=== PATIENT | female | born 1995 | race American Indian/Alaskan Native ===

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

== ENCOUNTER 2017-10-01 01:30 | Emergency (ER) | payer MEDICAID ==
[2017-10-01 01:18] VITALS: BP 134/61
[~2017-10-01 01:30] MED LIST: Sodium Chloride 0.9% 1,000 ML IV ONE
--- NOTE | 2017-10-01 01:32 | EDM.PDOC ---
ED HPI GENERAL MEDICAL PROBLEM - General Chief Complaint: Fever Stated Complaint: IN BY AMBULANCE Time Seen by Provider: 10/01/17 01:20 Source of Information: Reports: Patient History Limitations: Reports: No Limitations - History of Present Illness INITIAL COMMENTS - FREE TEXT/NARRATIVE: This 21 yo female patient was brought to the ED by [facility] due to an elevated temp , generalized body aches, nausea and loose stools. The patient reports her symptoms started 3 days ago. The patient reports she has been taking ibuprofen and Tylenol for temporary symptom relief. The patient reports she took Motrin about 30 minutes prior to coming to the ED and Tylenol 5 hours prior to coming to the ED. The patient does not know if she got the flu shot this year. The patient reports she was forced to play a basketball game yesterday despite her current symptoms. 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 Generalized Pain Score (Numeric/FACES): 5 - Related Data Allergies Allergy/AdvReac Type Severity Reaction Status Date / Time No Known Allergies Allergy Verified 10/01/17 01:18 Home Meds: Home Meds Acetaminophen [Tylenol] 325 mg PO ASDIRECTED PRN 02/19/16 [History] Ibuprofen 600 mg PO ASDIRECTED PRN 02/19/16 [History] Ferrous Sulfate [Iron] 325 mg PO DAILY 11/30/16 [History] Pnv No.122/Iron/Folic Acid [ Multi Tablet] 1 tab PO DAILY 11/30/16 [ History] Past Medical History - Past Health History Medical/Surgical History: Denies Medical/Surgical History HEENT History: Reports: None Cardiovascular History: Reports: None Respiratory History: Reports: None Gastrointestinal History: Reports: None Genitourinary History: 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: 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 History: Reports: None Neurological History: Reports: None Psychiatric History: Reports: None Endocrine/Metabolic History: Reports: None Hematologic History: Reports: None Immunologic History: Reports: None Oncologic (Cancer) History: Reports: None Dermatologic History: Reports: None - Infectious Disease History Infectious Disease History: Reports: None - Past Surgical History Head Surgeries/Procedures: Reports: None Social & Family History - Family History Family Medical History: Noncontributory - Tobacco Use Smoking Status *Q: Never Smoker Second Hand Smoke Exposure: No - Caffeine Use Caffeine Use: Reports: None - Alcohol Use Days Per Week of Alcohol Use: 0 - Recreational Drug Use Recreational Drug Use: No ED ROS GENERAL - Review of Systems Review Of Systems: ROS reveals no pertinent complaints other than HPI. ED EXAM, GENERAL - Physical Exam Exam: See Below Exam Limited By: No Limitations General Appearance: Alert, WD/WN, Moderate Distress Eye Exam: Bilateral Eye: EOMI, Normal Inspection, PERRL Ears: Normal External Exam, Normal Canal, Hearing Grossly Normal, Normal TMs Nose: Normal Inspection, Normal Mucosa, No Blood Throat/Mouth: Normal Inspection, Normal Lips, Normal Teeth, Normal Gums, Normal Oropharynx, Normal Voice, No Airway Compromise Head: Atraumatic, Normocephalic Neck: Normal Inspection, Supple, Non-Tender, Full Range of Motion Respiratory/Chest: No Respiratory Distress, Lungs Clear, Normal Breath Sounds, No Accessory Muscle Use, Chest Non-Tender Cardiovascular: Normal Peripheral Pulses, Regular Rate, Rhythm, No Edema, No Gallop, No JVD, No Murmur, No Rub GI/Abdominal: Normal Bowel Sounds, Soft, Non-Tender, No Organomegaly, No Distention, No Abnormal Bruit, No Mass (Female) Exam: Deferred Rectal (Female) Exam: Deferred Back Exam: Normal Inspection, Full Range of Motion, NT Extremities: Normal Inspection, Normal Range of Motion, Non-Tender, Normal Capillary Refill, No Pedal Edema Neurological: Alert, Oriented, CN II-XII Intact, Normal Cognition, Normal Gait, Normal Reflexes, No Motor/Sensory Deficits Psychiatric: Normal Affect, Normal Mood Skin Exam: Diaphoretic, Increased Warmth Lymphatic: No Adenopathy Course - Vital Signs Last Recorded V/S: Last Vital Signs Temp 39.1 C H 10/01/17 01:06 Pulse 123 H 10/01/17 01:06 Resp 21 H 10/01/17 01:06 BP 134/61 10/01/17 01:06 Pulse Ox 99 10/01/17 01:06 - Orders/Labs/Meds Orders: Active Orders 24 hr Category Date Time Status CULTURE BLOOD [BC] Stat Lab 10/01/17 01:37 Ordered CULTURE BLOOD [BC] Stat Lab 10/01/17 01:37 Ordered Sodium Chloride 0.9% [Normal Saline] 1,000 ml Med 10/01/17 01:25 Active IV .BOLUS Blood Culture x2 Reflex Set [OM.PC] Stat Oth 10/01/17 01:37 Ordered Medication Orders Sodium Chloride (Normal Saline) 1,000 mls @ 999 mls/hr IV .BOLUS ONE Stop: 10/01/17 02:25 Last Admin: 10/01/17 01:34 Dose: 999 mls/hr Labs: Laboratory Tests 10/01/17 10/01/17 10/01/17 Range/Units 01:02 01:02 01:02 WBC (5.0-10.0) 10^3/uL RBC (4.2-5.4) 10^6/uL Hgb (12.0-16.0) g/dL Hct (37.0-47.0) % MCV (80-100) fL MCH (27.0-34.0) pg MCHC (33.0-35.0) g/dL Plt Count (150-450) 10^3/uL Neut % (Auto) (42.2-75.2) % Lymph % (Auto) (20.5-50.1) % [place] % (Auto) (2-8) % Eos % (Auto) (1.0-3.0) % Baso % (Auto) (0.0-1.0) % Add Manual Diff Neutrophils % (Manual) (42-75) % Lymphocytes % (Manual) (20-50) % Monocytes % (Manual) (2-8) % Sodium (135-145) mmol/L Potassium (3.6-5.0) mmol/L Chloride (101-111) mmol/L Carbon Dioxide (21.0-31.0) mmol/L Anion Gap BUN (7-18) mg/dL Creatinine (0.6-1.3) mg/dL Est Cr Clr Drug Dosing mL/min Estimated GFR (MDRD) BUN/Creatinine Ratio Glucose (74-105) mg/dL Lactic Acid (0.5-2.2) mmol/L Calcium (8.4-10.2) mg/dl Magnesium (1.8-2.5) mg/dL Total Bilirubin (0.2-1.0) mg/dL AST (10-42) IU/L ALT (10-60) IU/L Alkaline Phosphatase (42-121) IU/L Total Protein (6.7-8.2) g/dl Albumin (3.2-5.5) g/dl Globulin Albumin/Globulin Ratio Urine Color Yellow (YELLOW) Urine Appearance Cloudy (CLEAR) Urine pH 6.0 (5.0-9.0) Ur Specific [place] 1.020 (1.005-1.030) Urine Protein >=300 H (NEGATIVE) Urine Glucose (UA) Negative (NEGATIVE) Urine Ketones >=160 H (NEGATIVE) Urine Occult Blood Large H (NEGATIVE) Urine Nitrite Negative (NEGATIVE) Urine Bilirubin Small H (NEGATIVE) Urine Urobilinogen 1.0 (0.2-1.0) mg/dL Ur Leukocyte Esterase Small H (NEGATIVE) Urine RBC 5-10 H /HPF Urine WBC >100 H (0-5/HPF) /HPF Ur Epithelial Cells Many H /HPF Urine Bacteria Many H (0-FEW/HPF) /HPF Urinalysis Comment Urine HCG, Qual Negative Salicylates Urine Opiates Screen Negative (NEGATIVE) Ur Oxycodone Screen Negative (NEGATIVE) Urine Methadone Screen Negative (NEGATIVE) Acetaminophen Ur Barbiturates Screen Negative (NEGATIVE) U Tricyclic Antidepress Negative (NEGATIVE) Ur Phencyclidine Scrn Negative (NEGATIVE) Ur Amphetamine Screen Negative (NEGATIVE) U Methamphetamines Scrn Negative (NEGATIVE) Urine MDMA Screen Negative (NEGATIVE) U Benzodiazepines Scrn Negative (NEGATIVE) Urine Cocaine Screen Negative (NEGATIVE) U Marijuana (THC) Screen Positive H (NEGATIVE) Ethyl Alcohol mg/dL 10/01/17 10/01/17 10/01/17 Range/Units 01:10 01:10 01:10 WBC 23.4 H (5.0-10.0) 10^3/uL RBC 4.54 (4.2-5.4) 10^6/uL Hgb 11.1 L D (12.0-16.0) g/dL Hct 33.9 L (37.0-47.0) % MCV 74.7 L (80-100) fL MCH 24.4 L (27.0-34.0) pg MCHC 32.7 L (33.0-35.0) g/dL Plt Count 241 D (150-450) 10^3/uL Neut % (Auto) 84.9 H (42.2-75.2) % Lymph % (Auto) 5.1 L (20.5-50.1) % [place] % (Auto) 9.9 H (2-8) % Eos % (Auto) 0.0 L (1.0-3.0) % Baso % (Auto) 0.1 (0.0-1.0) % Add Manual Diff Yes Neutrophils % (Manual) 85 H (42-75) % Lymphocytes % (Manual) 9 L (20-50) % Monocytes % (Manual) 6 (2-8) % Sodium 133 L (135-145) mmol/L Potassium 3.6 (3.6-5.0) mmol/L Chloride 101 (101-111) mmol/L Carbon Dioxide 22.0 (21.0-31.0) mmol/L Anion Gap 13.6 BUN 10 (7-18) mg/dL Creatinine 0.9 (0.6-1.3) mg/dL Est Cr Clr Drug Dosing 75.87 mL/min Estimated GFR (MDRD) > 60 BUN/Creatinine Ratio 11.11 Glucose 115 H (74-105) mg/dL Lactic Acid (0.5-2.2) mmol/L Calcium 8.3 L (8.4-10.2) mg/dl Magnesium 1.7 L (1.8-2.5) mg/dL Total Bilirubin 0.8 (0.2-1.0) mg/dL AST 21 (10-42) IU/L ALT 36 (10-60) IU/L Alkaline Phosphatase 94 (42-121) IU/L Total Protein 7.8 (6.7-8.2) g/dl Albumin 3.7 (3.2-5.5) g/dl Globulin 4.1 Albumin/Globulin Ratio 0.90 Urine Color (YELLOW) Urine Appearance (CLEAR) Urine pH (5.0-9.0) Ur Specific [place] (1.005-1.030) Urine Protein (NEGATIVE) Urine Glucose (UA) (NEGATIVE) Urine Ketones (NEGATIVE) Urine Occult Blood (NEGATIVE) Urine Nitrite (NEGATIVE) Urine Bilirubin (NEGATIVE) Urine Urobilinogen (0.2-1.0) mg/dL Ur Leukocyte Esterase (NEGATIVE) Urine RBC /HPF Urine WBC (0-5/HPF) /HPF Ur Epithelial Cells /HPF Urine Bacteria (0-FEW/HPF) /HPF Urinalysis Comment Urine HCG, Qual Salicylates < 4.0 Urine Opiates Screen (NEGATIVE) Ur Oxycodone Screen (NEGATIVE) Urine Methadone Screen (NEGATIVE) Acetaminophen < 10.0 Ur Barbiturates Screen (NEGATIVE) U Tricyclic Antidepress (NEGATIVE) Ur Phencyclidine Scrn (NEGATIVE) Ur Amphetamine Screen (NEGATIVE) U Methamphetamines Scrn (NEGATIVE) Urine MDMA Screen (NEGATIVE) U Benzodiazepines Scrn (NEGATIVE) Urine Cocaine Screen (NEGATIVE) U Marijuana (THC) Screen (NEGATIVE) Ethyl Alcohol < 5 mg/dL 10/01/17 Range/Units 01:50 WBC (5.0-10.0) 10^3/uL RBC (4.2-5.4) 10^6/uL Hgb (12.0-16.0) g/dL Hct (37.0-47.0) % MCV (80-100) fL MCH (27.0-34.0) pg MCHC (33.0-35.0) g/dL Plt Count (150-450) 10^3/uL Neut % (Auto) (42.2-75.2) % Lymph % (Auto) (20.5-50.1) % [place] % (Auto) (2-8) % Eos % (Auto) (1.0-3.0) % Baso % (Auto) (0.0-1.0) % Add Manual Diff Neutrophils % (Manual) (42-75) % Lymphocytes % (Manual) (20-50) % Monocytes % (Manual) (2-8) % Sodium (135-145) mmol/L Potassium (3.6-5.0) mmol/L Chloride (101-111) mmol/L Carbon Dioxide (21.0-31.0) mmol/L Anion Gap BUN (7-18) mg/dL Creatinine (0.6-1.3) mg/dL Est Cr Clr Drug Dosing mL/min Estimated GFR (MDRD) BUN/Creatinine Ratio Glucose (74-105) mg/dL Lactic Acid 0.8 (0.5-2.2) mmol/L Calcium (8.4-10.2) mg/dl Magnesium (1.8-2.5) mg/dL Total Bilirubin (0.2-1.0) mg/dL AST (10-42) IU/L ALT (10-60) IU/L Alkaline Phosphatase (42-121) IU/L Total Protein (6.7-8.2) g/dl Albumin (3.2-5.5) g/dl Globulin Albumin/Globulin Ratio Urine Color (YELLOW) Urine Appearance (CLEAR) Urine pH (5.0-9.0) Ur Specific [place] (1.005-1.030) Urine Protein (NEGATIVE) Urine Glucose (UA) (NEGATIVE) Urine Ketones (NEGATIVE) Urine Occult Blood (NEGATIVE) Urine Nitrite (NEGATIVE) Urine Bilirubin (NEGATIVE) Urine Urobilinogen (0.2-1.0) mg/dL Ur Leukocyte Esterase (NEGATIVE) Urine RBC /HPF Urine WBC (0-5/HPF) /HPF Ur Epithelial Cells /HPF Urine Bacteria (0-FEW/HPF) /HPF Urinalysis Comment Urine HCG, Qual Salicylates Urine Opiates Screen (NEGATIVE) Ur Oxycodone Screen (NEGATIVE) Urine Methadone Screen (NEGATIVE) Acetaminophen Ur Barbiturates Screen (NEGATIVE) U Tricyclic Antidepress (NEGATIVE) Ur Phencyclidine Scrn (NEGATIVE) Ur Amphetamine Screen (NEGATIVE) U Methamphetamines Scrn (NEGATIVE) Urine MDMA Screen (NEGATIVE) U Benzodiazepines Scrn (NEGATIVE) Urine Cocaine Screen (NEGATIVE) U Marijuana (THC) Screen (NEGATIVE) Ethyl Alcohol mg/dL Meds: Medications Generic Name Dose Route Start Last Admin Trade Name Freq PRN Reason Stop Dose Admin Sodium Chloride 1,000 mls @ 999 mls/hr 10/01/17 01:25 10/01/17 01:34 Normal Saline IV 10/01/17 02:25 999 mls/hr .BOLUS ONE Administration Discontinued Medications Generic Name Dose Route Start Last Admin Trade Name Freq PRN Reason Stop Dose Admin Acetaminophen 650 mg 10/01/17 01:51 10/01/17 01:58 Tylenol PO 10/01/17 01:52 650 mg NOW ONE Administration Metronidazole 500 mg 10/01/17 02:18 Metronidazole PO 10/01/17 02:19 ONETIME ONE Penicillin G Procaine/Benzathine 1.2 millunits 10/01/17 02:18 Bicillin C-R 600/600 IM 10/01/17 02:19 ONETIME ONE Departure - Departure Time of Disposition: 02:30 Disposition: Home, Self-Care 01 Condition: Fair Clinical Impression: Bacterial vaginitis, Strep throat - Discharge Information Instructions: Bacterial Vaginosis, [id number], Strep Throat, [id number] Forms: ED Department Discharge Care Plan Goals: The patient was advised of the examination and lab results during the visit. The patient was given an injection of Penicillin and an oral dose of Metronidazole while in the ED. The patient was discharged with a script for Metronidazole (500 mg) #14 to take 1 by mouth 2 times per day for 7 days and Azithromycin (250 mg) #6 to take 2 by mouth on day 1 and 1 by mouth on days 2- 5. The patient may continue to take Tylenol and ibuprofen as directed for temporary symptom relief. If the patient has any additional symptoms or concerns , the patient should follow-up with her primary care facility or return to the emergency department. - My Orders Last 24 Hours: My Active Orders 10/01/17 01:25 Sodium Chloride 0.9% [Normal Saline] 1,000 ml IV .BOLUS 10/01/17 01:37 CULTURE BLOOD [BC] Stat CULTURE BLOOD [BC] Stat Blood Culture x2 Reflex Set [OM.PC] Stat - Assessment/Plan Last 24 Hours: My Active Orders 10/01/17 01:25 Sodium Chloride 0.9% [Normal Saline] 1,000 ml IV .BOLUS 10/01/17 01:37 CULTURE BLOOD [BC] Stat CULTURE BLOOD [BC] Stat Blood Culture x2 Reflex Set [OM.PC] Stat
[2017-10-01 01:35] LABS: CHLORIDE,CL 101 mmol/L (101-111); SODIUM,NA 133 mmol/L (135-145)
[2017-10-01 01:37] LABS: ACETAMINOPHEN < 10.0
[2017-10-01] MEDS ORDERED: Acetaminophen 325 MG Tab PO ONE (01:51)
[2017-10-01] MEDS ORDERED: metroNIDAZOLE 250 MG Tab PO ONE (02:18)
[2017-10-01] MEDS ORDERED: Penicillin G Benzathine/Procaine 600-600 1.2 Millunits/2 ML Syringe IM ONE (02:18)
== END 2017-10-01 02:42 | disposition home or self-care (01) ==
LOC: DL.ED 01:30
DX: N76.0 Acute vaginitis (principal); J02.0 Streptococcal pharyngitis
CPT/HCPCS: 36415; 80053; 80305; 81001; 81025; 83605; 83735; 85025; 87040; 87430; 87804; 96360; 96372; 99284; A9270; G0480; J0558; J7030

== ENCOUNTER 2018-08-20 18:26 | Emergency (ER) | payer MEDICAID ==
[2018-08-20] MEDS ORDERED: Ondansetron 4 MG/2 ML SDV IV ONE (19:03)
[2018-08-20] MEDS ORDERED: Lactated Ringers 1,000 ML IV ONE (19:03)
--- NOTE | 2018-08-20 19:06 | EDM.PDOC ---
ED HPI GENERAL MEDICAL PROBLEM - General Chief Complaint: Gastrointestinal Problem Stated Complaint: STOMACH PAIN/THROWING UP [id number] Time Seen by Provider: 08/20/18 19:04 Source of Information: Reports: Patient History Limitations: Reports: No Limitations - History of Present Illness INITIAL COMMENTS - FREE TEXT/NARRATIVE: recurrent abd pain with N/V since this am. been Dx with GB stones had appt but missed it. 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: Reports: None Neurological History: Reports: None Psychiatric History: Reports: None Endocrine/Metabolic History: Reports: None Hematologic History: Reports: None Immunologic History: Reports: None Oncologic (Cancer) History: Reports: None Dermatologic History: Reports: None - Infectious Disease History Infectious Disease History: Reports: None - Past Surgical History Head Surgeries/Procedures: Reports: None Social & Family History - Family History Family Medical History: Noncontributory - Tobacco Use Smoking Status *Q: Never Smoker - Caffeine Use Caffeine Use: Reports: Soda - Recreational Drug Use Recreational Drug Use: No ED ROS GENERAL - Review of Systems Review Of Systems: ROS reveals no pertinent complaints other than HPI. ED EXAM, GI/ABD - Physical Exam Exam: See Below Exam Limited By: No Limitations General Appearance: Alert, WD/WN, Mild Distress, Other (discomfort) Throat/Mouth: Normal Voice, No Airway Compromise Head: Atraumatic Neck: Non-Tender, Full Range of Motion Respiratory/Chest: No Respiratory Distress Cardiovascular: Regular Rate, Rhythm GI/Abdominal Exam: Soft, Tender, Other (epiG, BS hyper). No: Distended, Guarding, Rigid, Rebound Neurological: Alert, Oriented, Normal Cognition, Normal Gait, No Motor/Sensory Deficits Psychiatric: Tearful Skin Exam: Warm, Dry, Normal Color Lymphatic: No Adenopathy Course - Vital Signs Last Recorded V/S: Last Vital Signs Temp 36.6 C 08/20/18 21:11 Pulse 95 08/20/18 21:11 Resp 16 08/20/18 21:11 BP 123/66 08/20/18 21:11 Pulse Ox 98 08/20/18 21:11 - Orders/Labs/Meds Labs: Laboratory Tests 08/20/18 08/20/18 Range/Units 19:10 19:10 WBC 15.9 H (5.0-10.0) 10^3/uL RBC 5.05 (4.2-5.4) 10^6/uL Hgb 13.4 (12.0-16.0) g/dL Hct 40.2 (37.0-47.0) % MCV 79.6 L (80-100) fL MCH 26.5 L (27.0-34.0) pg MCHC 33.3 (33.0-35.0) g/dL Plt Count 250 (150-450) 10^3/uL Neut % (Auto) 83.4 H (42.2-75.2) % Lymph % (Auto) 9.6 L (20.5-50.1) % [place] % (Auto) 6.6 (2-8) % Eos % (Auto) 0.2 L (1.0-3.0) % Baso % (Auto) 0.2 (0.0-1.0) % Sodium 137 (135-145) mmol/L Potassium 3.5 L (3.6-5.0) mmol/L Chloride 104 (101-111) mmol/L Carbon Dioxide 22.0 (21.0-31.0) mmol/L Anion Gap 14.5 BUN 11 (7-18) mg/dL Creatinine 0.7 (0.6-1.3) mg/dL Est Cr Clr Drug Dosing 101.39 mL/min Estimated GFR (MDRD) > 60 BUN/Creatinine Ratio 15.71 Glucose 135 H (74-105) mg/dL Calcium 8.9 (8.4-10.2) mg/dl Total Bilirubin 1.6 H (0.2-1.0) mg/dL AST 212 H (10-42) IU/L ALT 175 H (10-60) IU/L Alkaline Phosphatase 132 H (42-121) IU/L Total Protein 8.3 H (6.7-8.2) g/dl Albumin 4.6 (3.2-5.5) g/dl Globulin 3.7 Albumin/Globulin Ratio 1.24 Amylase > 2000 H (28-100) U/L Lipase > 400 H (22-51) U/L HCG, Qual Negative Meds: Medications Discontinued Medications Generic Name Dose Route Start Last Admin Trade Name Freq PRN Reason Stop Dose Admin Lactated Ringer's 1,000 mls @ 999 mls/hr 08/20/18 19:03 08/20/18 19:15 Ringers, Lactated IV 08/20/18 20:03 999 mls/hr .BOLUS ONE Administration Iopamidol 100 ml 08/20/18 19:57 08/20/18 20:21 Isovue-300 (61%) IVPUSH 08/20/18 19:58 100 ml ONETIME ONE Administration Morphine Sulfate 2 mg 08/20/18 21:10 08/20/18 21:16 Morphine IVPUSH 08/20/18 21:11 2 mg ONETIME ONE Administration Ondansetron HCl 4 mg 08/20/18 19:03 08/20/18 19:15 Zofran IV 08/20/18 19:04 4 mg ONETIME ONE Administration - Re-Assessments/Exams Free Text/Narrative Re-Assessment/Exam: 08/20/18 21:[address] Moody who kindly accepted pt. Departure - Departure Time of Disposition: 21:35 Disposition: DC/Tfer to Acute Hospital 02 Condition: Fair Clinical Impression: Cholecystitis Pancreatitis Qualifiers: Chronicity: acute Pancreatitis type: unspecified pancreatitis type Acute pancreatitis complication: no infection or necrosis Qualified Code(s): K85.90 - Acute pancreatitis without necrosis or infection, unspecified Cholelithiases Qualifiers: Cholelithiasis location: gallbladder Cholecystitis presence: without cholecystitis Biliary obstruction: without biliary obstruction Qualified Code(s) : K80.20 - Calculus of gallbladder without cholecystitis without obstruction - Discharge Information Forms: Interfacility Transfer EMTALA
[2018-08-20 19:45] LABS: ANION GAP 14.5; CHLORIDE,CL 104 mmol/L (101-111); SODIUM,NA 137 mmol/L (135-145)
[2018-08-20] MEDS ORDERED: Iopamidol 612 MG/ML 100 ML Bottle IVPUSH ONE (19:57)
[2018-08-20] MEDS ORDERED: Morphine 2 MG/ML Syringe IVPUSH ONE (21:10)
[2018-08-20 21:12] VITALS: BP 123/66
== END 2018-08-20 22:16 ==
LOC: DL.ED 18:26
DX: K80.10 Calculus of gallbladder with chronic cholecystitis without obstruction (principal); K85.90 Acute pancreatitis without necrosis or infection, unspecified
CPT/HCPCS: 36415; 74177; 80053; 82150; 83690; 84703; 85025; 96361; 96374; 96375; 99285; J2270; J2405; J7120; Q9967

== ENCOUNTER 2018-11-24 20:31 | Emergency (ER) | payer MEDICAID ==
[2018-11-24] MEDS ORDERED: Clindamycin Phosphate 900 MG in Sodium Chloride 0.9% 100 ML IV ONE (21:35)
[2018-11-24] MEDS ORDERED: Sodium Chloride 0.9% 1,000 ML IV ONE (21:35)
[2018-11-24 21:37] VITALS: BP 151/71; PULSE 92
--- NOTE | 2018-11-24 21:38 | EDM.PDOC ---
ED HPI GENERAL MEDICAL PROBLEM - General Chief Complaint: Laceration Stated Complaint: CUT RT FOOT [id number] Time Seen by Provider: 11/24/18 21:35 Source of Information: Reports: Patient History Limitations: Reports: No Limitations - History of Present Illness INITIAL COMMENTS - FREE TEXT/NARRATIVE: dropped glass onto right foot 3 days ago, now swollen red infected painful, looks worse Right Feet Pain Score (Numeric/FACES): 8 - Related Data Allergies Allergy/AdvReac Type Severity Reaction Status Date / Time No Known Allergies Allergy Verified 11/24/18 21:37 Home Meds: Home Meds . 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 Neurological History: Reports: None Psychiatric History: Reports: None Endocrine/Metabolic History: Reports: None Hematologic History: Reports: None Immunologic History: Reports: None Oncologic (Cancer) History: Reports: None Dermatologic History: Reports: None - Infectious Disease History Infectious Disease History: Reports: None - Past Surgical History Head Surgeries/Procedures: Reports: None Social & Family History - Family History Family Medical History: Noncontributory - Caffeine Use Caffeine Use: Reports: Soda ED ROS GENERAL - Review of Systems Review Of Systems: ROS reveals no pertinent complaints other than HPI. ED EXAM, SKIN/RASH Exam: See Below Exam Limited By: No Limitations General Appearance: Alert, WD/WN, Mild Distress, Other (discomfort) Ears: Hearing Grossly Normal Throat/Mouth: Normal Voice, No Airway Compromise Head: Atraumatic Neck: Non-Tender, Full Range of Motion Respiratory/Chest: No Respiratory Distress Cardiovascular: Regular Rate, Rhythm GI/Abdominal: Soft, Non-Tender Extremities: Redness, Other (right foot infected wound, red swollen, no lymphangitis, NV wnl, gait limited to pain) Neurological: Alert, Oriented, Normal Cognition, No Motor/Sensory Deficits Psychiatric: Tearful Skin: Warm, Dry, Normal Color Location, Skin: Lower Extremity, Right Associated features: Warmth, Tenderness, Swelling, Inflammation, Weeping. No: Lymphangitis Lymphatic: No Adenopathy Course - Vital Signs Last Recorded V/S: Last Vital Signs Temp 36.6 C 11/24/18 21:29 Pulse 92 11/24/18 21:29 Resp 16 11/24/18 21:29 BP 151/71 H 11/24/18 21:29 Pulse Ox 99 11/24/18 21:29 - Orders/Labs/Meds Orders: Active Orders 24 hr Category Date Time Status CULTURE BLOOD [BC] Stat Lab 11/24/18 21:44 Received CULTURE WOUND [RM] Stat Lab 11/24/18 21:33 Ordered Sodium Chloride 0.9% [Normal Saline] 1,000 ml Med 11/24/18 21:35 Active IV .BOLUS Medication Orders Sodium Chloride (Normal Saline) 1,000 mls @ 999 mls/hr IV .BOLUS ONE Stop: 11/24/18 22:35 Last Admin: 11/24/18 21:54 Dose: 999 mls/hr Labs: Laboratory Tests 11/24/18 11/24/18 11/24/18 Range/Units 21:44 21:44 21:44 WBC 11.2 H (5.0-10.0) 10^3/uL RBC 4.96 (4.2-5.4) 10^6/uL Hgb 13.1 (12.0-16.0) g/dL Hct 39.7 (37.0-47.0) % MCV 80.0 (80-100) fL MCH 26.4 L (27.0-34.0) pg MCHC 33.0 (33.0-35.0) g/dL Plt Count 269 (150-450) 10^3/uL Neut % (Auto) 61.3 (42.2-75.2) % Lymph % (Auto) 28.2 (20.5-50.1) % [place] % (Auto) 9.3 H (2-8) % Eos % (Auto) 1.0 (1.0-3.0) % Baso % (Auto) 0.2 (0.0-1.0) % Sodium 136 (135-145) mmol/L Potassium 3.3 L (3.6-5.0) mmol/L Chloride 102 (101-111) mmol/L Carbon Dioxide 22.0 (21.0-31.0) mmol/L Anion Gap 15.3 BUN 8 (7-18) mg/dL Creatinine 0.7 (0.6-1.3) mg/dL Est Cr Clr Drug Dosing 101.39 mL/min Estimated GFR (MDRD) > 60 BUN/Creatinine Ratio 11.42 Glucose 82 (74-105) mg/dL Lactic Acid 0.7 (0.5-2.2) mmol/L Calcium 8.8 (8.4-10.2) mg/dl Total Bilirubin 0.6 (0.2-1.0) mg/dL AST 15 (10-42) IU/L ALT 18 (10-60) IU/L Alkaline Phosphatase 76 (42-121) IU/L Total Protein 8.2 (6.7-8.2) g/dl Albumin 4.3 (3.2-5.5) g/dl Globulin 3.9 Albumin/Globulin Ratio 1.10 Meds: Medications Generic Name Dose Route Start Last Admin Trade Name Freq PRN Reason Stop Dose Admin Sodium Chloride 1,000 mls @ 999 mls/hr 11/24/18 21:35 11/24/18 21:54 Normal Saline IV 11/24/18 22:35 999 mls/hr .BOLUS ONE Administration Discontinued Medications Generic Name Dose Route Start Last Admin Trade Name Freq PRN Reason Stop Dose Admin Hydrocodone Bitart/Acetaminophen 1 tab 11/24/18 22:18 [place] 325-10 Mg PO 11/24/18 22:19 ONETIME ONE Clindamycin Phosphate 900 mg/ 106 mls @ 200 mls/hr 11/24/18 21:35 11/24/18 21 :55 Sodium Chloride IV 11/24/18 22:06 200 mls/hr ONETIME ONE Administration - Re-Assessments/Exams Free Text/Narrative Re-Assessment/Exam: 11/24/18 22:19 results discussed with pt who prefers home with PO Rx. Departure - Departure Time of Disposition: 22:19 Disposition: Home, Self-Care 01 Condition: Good Clinical Impression: Cellulitis of foot without toes, right - Discharge Information Instructions: Cellulitis, Adult, Ovks-[id number]-Guns Forms: ED Department Discharge Additional Instructions: 1) elevate leg as much as possible next 48 hours 2) keep wound clean dry covered 3) follow up at clinic 4) recheck if looks worse rx given; clindamycin 300mg qid x 40 vicodin 5/325mg bid prn x 6 - My Orders Last 24 Hours: My Active Orders 11/24/18 21:33 CULTURE WOUND [RM] Stat 11/24/18 21:35 Sodium Chloride 0.9% [Normal Saline] 1,000 ml IV .BOLUS 11/24/18 21:44 CULTURE BLOOD [BC] Stat - Assessment/Plan Last 24 Hours: My Active Orders 11/24/18 21:33 CULTURE WOUND [RM] Stat 11/24/18 21:35 Sodium Chloride 0.9% [Normal Saline] 1,000 ml IV .BOLUS 11/24/18 21:44 CULTURE BLOOD [BC] Stat
[2018-11-24 22:11] LABS: ANION GAP 15.3; CHLORIDE,CL 102 mmol/L (101-111); SODIUM,NA 136 mmol/L (135-145)
[2018-11-24] MEDS ORDERED: Acetaminophen/HYDROcodone 325-10 MG Tab PO ONE (22:18)
== END 2018-11-24 22:38 | disposition home or self-care (01) ==
LOC: DL.ED 20:31
DX: L03.115 Cellulitis of right lower limb (principal)
CPT/HCPCS: 36415; 73620; 80053; 83605; 85025; 87040; 87070; 96365; 99284; A9270; J3490; J7030; J7050

== ENCOUNTER 2018-11-26 02:32 | Inpatient (IN) | payer MEDICAID ==
[2018-11-26 08:10] LABS: ANION GAP 14.3; CHLORIDE,CL 101 mmol/L (101-111); SODIUM,NA 136 mmol/L (135-145)
[2018-11-26] MEDS ORDERED: Acetaminophen 325 MG Tab PO PRN (09:10)
--- NOTE | 2018-11-26 11:27 | PCM.HP ---
H&P History of Present Illness - General Date of Service: 11/26/18 Admit Problem/Dx: Admitted with: draining wound in Rt Foot and Cellulitis of Rt foot Source of Information: Patient, Provider (ER) History Limitations: Reports: No Limitations - History of Present Illness Initial Comments - Free Text/Narative: This is a 22 Y/O F with no significant past medical history presented to ER on with Rt foot wound ( which was cultured in ER) on that day she was advised to get admitted but she wanted to go home and was discharge by ER physician on Clindamycin ( as she stated she has allergy to PCN- Rash) but she came back again on 11/26/18 with pain and increased erythema of the rt Foot. she was given a dose of Vancomycin 2 gm Iv X 1 loading and will consult pharmacy for continuation of Vancomycin. Will also follow the wound Culture and adjust Abx as per sensitivity Onset of Symptoms: Reports: Gradual Quality: Reports: Throbbing - Related Data Allergies/Adverse Reactions: Allergies Allergy/AdvReac Type Severity Reaction Status Date / Time No Known Allergies Allergy Verified 11/24/18 21:37 Home Medications: Home Meds . 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 History: Reports: None Neurological History: Reports: None Psychiatric History: Reports: None Endocrine/Metabolic History: Reports: None Hematologic History: Reports: None Immunologic History: Reports: None Oncologic (Cancer) History: Reports: None Dermatologic History: Reports: None - Infectious Disease History Infectious Disease History: Reports: None - Past Surgical History Head Surgeries/Procedures: Reports: None Social & Family History - Family History Family Medical History: Noncontributory - Caffeine Use Caffeine Use: Reports: Soda H&P Review of Systems - Review of Systems: Review Of Systems: See Below General: Denies: Fever, Chills, Weakness HEENT: Denies: Headaches, Hearing Changes, Rhinitis, Sinus Congestion, Sore Throat, Visual Changes Pulmonary: Denies: Shortness of Breath, Wheezing, Pleuritic Chest Pain, Cough, Sputum Cardiovascular: Denies: Chest Pain, Dyspnea on Exertion, Lightheadedness Gastrointestinal: Denies: Abdominal Pain, Constipation, Diarrhea, Difficulty Swallowing, Melena Genitourinary: Denies: Frequency, Burning, Flank Pain 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: Reports: Foot Pain (dorsum of Rt foot and swelling of the dorsum of Rt Foot) Skin: Reports: Erythema, Wound (dorsum of rt Foot), Change in Color (of rt Foot ( tanner)). Denies: Cyanosis, Jaundice Psychiatric: Denies: Confusion, Anxiety, Agitation Neurological: Denies: Confusion, Dizziness, Headache, Paresthesia, Weakness Hematologic/Lymphatic: Reports: No Symptoms Immunologic: Reports: No Symptoms, Other (allery with PCN) Exam - Exam Exam: See Below - Vital Signs Vital Signs: Last Vital Signs Temp 37.3 C 11/26/18 08:11 Pulse 96 11/26/18 08:11 Resp 20 11/26/18 08:11 BP 98/64 11/26/18 08:11 Pulse Ox 99 11/26/18 08:11 Weight: 83.824 kg - Exam Quality Assessment: DVT Prophylaxis, Skin Breakdown (Dorsum of Rt foot ). No: Supplemental Oxygen, Urinary Catheter General: Alert, Oriented, Cooperative HEENT: Conjunctiva Clear, EOMI, Hearing Intact, Mucosa Moist & [place], Pupils Equal Neck: Supple. No: Lymphadenopathy, JVD, Thyromegaly Lungs: Clear to Auscultation, Normal Respiratory Effort. No: Crackles, Rales, Wheezing Cardiovascular: Regular Rate, Regular Rhythm, Normal S1, Normal S2 GI/Abdominal Exam: Normal Bowel Sounds, Soft, Non-Tender, No Distention. No: Guarding, Rebound, Tender (Female) Exam: Deferred Rectal (Female) Exam: Deferred Back Exam: Normal Inspection, Full Range of Motion Extremities: Normal Inspection, No Pedal Edema, Increased Warmth (of the tanner of Rt foot), Redness (Rt foot) Skin: Warm, Dry, Wound (Rt foot) Neurological: Cranial Nerves Intact, Reflexes Equal Bilateral Neuro Extensive - Mental Status: Alert, Oriented x3, Normal Mood/Affect, Normal Cognition, Memory Intact Neuro Extensive - Motor, Sensory, Reflexes: CN II-XII Intact, Normal Gait, Normal Reflexes Psychiatric: Alert, Normal Affect, Normal Mood - Patient Data Lab Results Last 24 hrs: Laboratory Results - last 24 hr 11/26/18 11/26/18 11/26/18 Range/Units 03:04 03:04 03:04 WBC 10.5 H (5.0-10.0) 10^3/uL RBC 4.64 (4.2-5.4) 10^6/uL Hgb 12.3 (12.0-16.0) g/dL Hct 37.2 (37.0-47.0) % MCV 80.2 (80-100) fL MCH 26.5 L (27.0-34.0) pg MCHC 33.1 (33.0-35.0) g/dL Plt Count 276 (150-450) 10^3/uL Neut % (Auto) 63.1 (42.2-75.2) % Lymph % (Auto) 26.2 (20.5-50.1) % [place] % (Auto) 9.6 H (2-8) % Eos % (Auto) 0.9 L (1.0-3.0) % Baso % (Auto) 0.2 (0.0-1.0) % Sodium 136 (135-145) mmol/L Potassium 3.3 L (3.6-5.0) mmol/L Chloride 101 (101-111) mmol/L Carbon Dioxide 24.0 (21.0-31.0) mmol/L Anion Gap 14.3 BUN 9 (7-18) mg/dL Creatinine 0.6 (0.6-1.3) mg/dL Est Cr Clr Drug Dosing TNP Estimated GFR (MDRD) > 60 BUN/Creatinine Ratio 15.00 Glucose 95 (74-105) mg/dL Calcium 9.0 (8.4-10.2) mg/dl Total Bilirubin 0.7 (0.2-1.0) mg/dL AST 15 (10-42) IU/L ALT 15 (10-60) IU/L Alkaline Phosphatase 75 (42-121) IU/L C-Reactive Protein 12.7 H (0.0-1.3) mg/dL Total Protein 7.7 (6.7-8.2) g/dl Albumin 3.9 (3.2-5.5) g/dl Globulin 3.8 Albumin/Globulin Ratio 1.03 Result Diagrams: 11/26/18 03:04 11/26/18 03:04 - Problem List (1) Cellulitis of foot without toes, right SNOMED Code(s): 574169773 ICD Code: L03.115 - CELLULITIS OF RIGHT LOWER LIMB Status: Acute Current Visit: No Problem List Initiated/Reviewed/Updated: Yes Orders Last 24hrs: Active Orders 24 hr Category Date Time Status Acetaminophen [Tylenol] Med 11/26/18 09:10 Active 650 mg PO Q4H PRN Medication Orders Acetaminophen (Tylenol) 650 mg PO Q4H PRN PRN Reason: Pain Last Admin: 11/26/18 10:02 Dose: 650 mg Assessment/Plan Comment:: This is a 22 Y/O F with no past Medical history came to ER for the second time on 11/26 with complain of pain of rt foot. Pt stated that window fell on her foot and caused a skin break, there is drainage from the wound and on 11/25 the wound culture was done and because of PCN allergy she was send home on Clindamycin 400 mg oral TID ( pt was send home on 11/25 because she did not wanted to get admitted). She came back on 11/26 with increasing pain and warmth of the rt foot, and because of PCN allergy she was started on Vancomycin and pharmacy was consulted for continuation of abx 1. Rt Foot Cellulitis: -Follow wound culture done on 11/15 -Will give a loading dose of Vancomycin 2 gm IV X 1 dose -Consult pharmacy to dose dose vancomycin and check level -As she failed oral abx, need to continue IV abx for few days 2. Rt foot Pain: This is from the wound with infection -Will continue Tylenol 650 mg q4hrs PRN 3. Code Status: Full code
[2018-11-26] MEDS ORDERED: Docusate Sodium 100 MG Cap PO PRN (11:48)
--- NOTE | 2018-11-26 11:53 | PCM.DCSUM1 ---
Discharge Summary - Hospital Course Free Text/Narrative:: This is a 22 Y/O F with no significant past medical history presented to ER on with Rt foot wound ( which was cultured in ER) on that day she was advised to get admitted but she wanted to go home and was discharge by ER physician on Clindamycin ( as she stated she has allergy to PCN- Rash) but she came back again on 11/26/18 with pain and increased erythema of the rt Foot. she was given a dose of Vancomycin 2 gm Iv X 1 loading and will consult pharmacy for continuation of Vancomycin. Will also follow the wound Culture and adjust Abx as per sensitivity Today in AM she was seen in [place] and discussed with her about continuation of abx and 1 hr after the round is done she wanted to go home, suddenly she remember she has final examination and she decided to go home against medical advise. She was told the infection can get worse and she can even lose her limb , despite that she signed and left AMA. she is advised to continue Clindamycin that was given to her on 11/25 ER visit. Diagnosis: Stroke: No - Discharge Data Discharge Date: 11/26/18 Discharge Disposition: Home, Self-Care 01 Condition: Good - Discharge Diagnosis/Problem(s) (1) Cellulitis of foot without toes, right SNOMED Code(s): 711931061 ICD Code: L03.115 - CELLULITIS OF RIGHT LOWER LIMB Status: Acute Current Visit: No - Patient Instructions Diet: Regular Diet as Tolerated Activity: As Tolerated Showering/Bathing: May Shower Other/Special Instructions: Follow with PMD and take anti-biotics , Clindamycin 400 mg TID and can come back to ER if she feels and wants to get admitted. She is leaving now against medical advise and she is warned that she can even lose her limb if the infection gets worse. Knowing everything she left the hospital AMA. - Discharge Plan Home Medications: Home Meds . [No Known Home Meds] 11/24/18 [History] Referrals: PCP,Not In Area [Ordering Only Provider] - - Discharge Summary/Plan Comment DC Time >30 min.: Yes Discharge Summary/Plan Comment: This is a 22 y/O F admitted with rt foot cellulitis Impression and Plan: 1. Rt foot cellulitis: -Follow wound culture -Continue IV Vancomycin -Pharmacy to dose vancomycin 2. Disposition: Pt left AMA and will continue Clindamycin given to her on visit to ER. advise to come back if the erythema and infection does not improve - General Info Functional Status: Reports: Pain Controlled, Tolerating Diet, Ambulating (can not bear weight on Rt LE), Urinating - Review of Systems General: Reports: Appetite (good). Denies: Fever, Chills HEENT: Denies: Headaches, Sinus Congestion, Sore Throat, Visual Changes Pulmonary: Denies: Shortness of Breath, Cough, Wheezing Cardiovascular: Denies: Chest Pain, Dyspnea on Exertion, Lightheadedness Genitourinary: Denies: Dysuria, Frequency, Burning, Flank Pain 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: Reports: Leg Pain (rt Leg), Foot Pain (Rt foot ( dorsum)). Denies: Neck Pain, Hand Pain Skin: Denies: Cyanosis, Diaphoresis Neurological: Reports: Difficulty Walking. Denies: Confusion, Numbness, Tremors Psychiatric: Denies: Confusion, Anxiety - Patient Data Vitals - Most Recent: Last Vital Signs Temp 37.3 C 11/26/18 08:11 Pulse 96 11/26/18 08:11 Resp 20 11/26/18 08:11 BP 98/64 11/26/18 08:11 Pulse Ox 99 11/26/18 08:11 Weight - Most Recent: 83.824 kg I&O - Last 24 hours: Intake & Output 11/25/18 11/26/18 11/26/18 22:59 06:59 14:59 Intake Total 50 Balance 50 Lab Results - Last 24 hrs: Laboratory Results - last 24 hr 11/26/18 11/26/18 11/26/18 Range/Units 03:04 03:04 03:04 WBC 10.5 H (5.0-10.0) 10^3/uL RBC 4.64 (4.2-5.4) 10^6/uL Hgb 12.3 (12.0-16.0) g/dL Hct 37.2 (37.0-47.0) % MCV 80.2 (80-100) fL MCH 26.5 L (27.0-34.0) pg MCHC 33.1 (33.0-35.0) g/dL Plt Count 276 (150-450) 10^3/uL Neut % (Auto) 63.1 (42.2-75.2) % Lymph % (Auto) 26.2 (20.5-50.1) % [place] % (Auto) 9.6 H (2-8) % Eos % (Auto) 0.9 L (1.0-3.0) % Baso % (Auto) 0.2 (0.0-1.0) % Sodium 136 (135-145) mmol/L Potassium 3.3 L (3.6-5.0) mmol/L Chloride 101 (101-111) mmol/L Carbon Dioxide 24.0 (21.0-31.0) mmol/L Anion Gap 14.3 BUN 9 (7-18) mg/dL Creatinine 0.6 (0.6-1.3) mg/dL Est Cr Clr Drug Dosing TNP Estimated GFR (MDRD) > 60 BUN/Creatinine Ratio 15.00 Glucose 95 (74-105) mg/dL Calcium 9.0 (8.4-10.2) mg/dl Total Bilirubin 0.7 (0.2-1.0) mg/dL AST 15 (10-42) IU/L ALT 15 (10-60) IU/L Alkaline Phosphatase 75 (42-121) IU/L C-Reactive Protein 12.7 H (0.0-1.3) mg/dL Total Protein 7.7 (6.7-8.2) g/dl Albumin 3.9 (3.2-5.5) g/dl Globulin 3.8 Albumin/Globulin Ratio 1.03 Med Orders - Current: Current Medications Acetaminophen (Tylenol) 650 mg PO Q4H PRN PRN Reason: Pain Last Admin: 11/26/18 10:02 Dose: 650 mg - Exam Quality Assessment: Reports: DVT Prophylaxis. Denies: Supplemental Oxygen, Urine Catheter General: Reports: Alert, Oriented, Cooperative, No Acute Distress HEENT: Reports: Pupils Equal, EOMI, Mucous Membr. Moist/[place] Neck: Reports: Supple, No JVD, No Thyromegaly Lungs: Reports: Clear to Auscultation, Normal Respiratory Effort Cardiovascular: Reports: Regular Rate, Regular Rhythm, No Murmurs GI/Abdominal Exam: Normal Bowel Sounds, No Distention. No: Guarding, Rigid, Rebound, Tender (Female) Exam: Deferred Rectal (Female) Exam: Deferred Back Exam: Reports: Normal Inspection, Full Range of Motion Extremities: Normal Inspection, No Pedal Edema, Increased Warmth (rt LE), Redness (Rt LE ( tanner and dorsum)) Skin: Reports: Warm, Dry, Other (wound on dorsum of rt foot) Neurological: Reports: No New Focal Deficit Psy/Mental Status: Reports: Alert, Normal Affect, Normal Mood
[2018-11-26] MEDS ORDERED: Heparin Sodium 5,000 Units/ML Vial SUBCUT SCH (12:00)
[2018-11-26 12:11] VITALS: BP 98/64
== END 2018-11-26 11:25 | disposition left against medical advice (07) | DRG 603 ==
LOC: DL.ED 02:32 → DL.MS 04:45
PROVIDERS: ADMIT Internal Medicine Nephrology; ATTEND Internal Medicine Nephrology
DX: L03.115 Cellulitis of right lower limb (principal); Z88.0 Allergy status to penicillin
CPT/HCPCS: 36415; 80053; 85025; 86140; 99284; A9270-GY

== ENCOUNTER 2020-09-19 17:00 | Emergency (ER) | payer MEDICAID ==
[2020-09-19 18:26] VITALS: BP 113/80; PULSE 110
[2020-09-19 19:09] LABS: ACETAMINOPHEN 0 ug/mL (10-30 (Therapeutic)); ANION GAP 14.3 mEq/L (7-13); CHLORIDE,CL 99 mmol/L (98-107); SODIUM,NA 138 mmol/L (136-145)
[2020-09-19 19:22] LABS: AMPHETAMINES,URINE NEGATIVE (NEGATIVE); BARBITURATES,URINE NEGATIVE (NEGATIVE); BENZODIAZEPINE,URINE NEGATIVE (NEGATIVE); MDMA (ECSTASY), URINE NEGATIVE (NEGATIVE); METHADONE,URINE NEGATIVE (NEGATIVE); METHAMPHETAMINES,URINE POSITIVE (NEGATIVE); OPIATES,URINE NEGATIVE (NEGATIVE); OXYCODONE,URINE NEGATIVE (NEGATIVE); PHENCYCLIDINE,URINE NEGATIVE (NEGATIVE); TCA,URINE NEGATIVE (NEGATIVE)
[2020-09-19] MEDS ORDERED: cefTRIAXone 1 GM, Lidocaine 1% 2.1 ML IM ONE ×2 (19:49)
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
[2020-09-19] MEDS ORDERED: Azithromycin 250 MG Tab PO ONE (20:06)
--- NOTE | 2020-09-19 20:43 | US ---
PROCEDURE INFORMATION: Exam: US , Transvaginal Exam date and time: 09/19/2020 8:22 PM Age: 24 years old Clinical indication: Lmp or gestational age (in weeks): ? ; Antepartum complications; Bleeding; ; Additional info: +hcg spotting one week TECHNIQUE: Imaging protocol: Real-time transvaginal obstetrical ultrasound of the maternal pelvis and a first trimester with image documentation. Transvaginal imaging was used for better evaluation of the fetus, adnexa, and/or cervix. COMPARISON: No relevant prior studies available. FINDINGS: Gestation: No gestational sac demonstrated. MATERNAL: Uterus: Minimal fluid in the endometrial cavity. Endometrial echo complex measures 10 mm maximally. Right adnexa: Right ovary measures 2.5 x 1 x 1.5 cm. Right ovarian cyst measures 1 x 1.2 x 0.8 cm. Left adnexa: Left ovary measures 2.8 x 1.6 x 1.7 cm. Intraperitoneal space: No fluid in the cul-de-sac. IMPRESSION: Empty uterus in a patient weakly positive. Findings may indicate very early IUP prior to visualization of a gestational sac or fetus. Correlation with serial beta-hCG levels and follow ultrasound recommended in order to exclude ectopic verses very early or early failure.
[2020-09-23 12:17] LABS: C.TRACHOMATIS BY TMA Positive (Negative); N.GONORRHOEAE BY TMA Positive (Negative)
== END 2020-09-19 21:19 ==
LOC: DL.ED 17:00
DX: O9A.211 Injury, poisoning and certain other consequences of external causes complicating pregnancy, first trimester (principal); S00.83XA Contusion of other part of head, initial encounter; S20.221A Contusion of right back wall of thorax, initial encounter; O23.11 Infections of bladder in pregnancy, first trimester; O99.321 Drug use complicating pregnancy, first trimester; F15.10 Other stimulant abuse, uncomplicated; O99.891 Other specified diseases and conditions complicating pregnancy; R45.6 Violent behavior; Z72.51 High risk heterosexual behavior; Z72.0 Tobacco use; Z20.822 Contact with and (suspected) exposure to COVID-19; Y04.0XXA Assault by unarmed brawl or fight, initial encounter
CPT/HCPCS: 36415; 76817; 80053; 80143; 80179; 80305; 80307; 81001; 81025; 84702; 85025; 87086; 87491; 87591; 87635; 96372; 99284; A9270; J0696; U0002

== ENCOUNTER 2021-03-01 02:16 | Emergency (ER) | payer MEDICAID ==
[2021-03-01 02:31] VITALS: BP 130/89; PULSE 107
[2021-03-01] MEDS ORDERED: Penicillin G Benzathine/Procaine 600-600 1.2 Millunits/2 ML Syringe IM ONE (02:44)
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
== END 2021-03-01 02:56 | disposition home or self-care (01) ==
LOC: DL.ED 02:16
DX: J02.0 Streptococcal pharyngitis (principal)
CPT/HCPCS: 87430; 96372; 99283; J0558

== ENCOUNTER 2021-07-20 23:56 | Emergency (ER) | payer MEDICAID ==
[2021-07-20] MEDS ORDERED: Ondansetron 4 MG Tab.DIS PO ONE (23:57)
[2021-07-20 23:58] VITALS: BP 127/94; PULSE 81
[2021-07-21] MEDS ORDERED: Sodium Chloride 0.9% 1,000 ML IV ONE (00:23)
[2021-07-21 00:38] LABS: ANION GAP 14.4 mEq/L (7-13); CHLORIDE,CL 102 mmol/L (98-107); SODIUM,NA 140 mmol/L (136-145)
[2021-07-21 00:46] LABS: CORONAVIRUS COVID-19 NAA NEGATIVE (NEGATIVE)
[2021-07-21] MEDS ORDERED: Ondansetron 4 MG/2 ML SDV IVPUSH ONE (00:54)
[2021-07-21] MEDS ORDERED: Ketorolac 30 MG/ML SDV IVPUSH ONE (00:54)
[2021-07-21] MEDS ORDERED: Ondansetron 4 MG Tab.DIS ONE (01:03)
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
== END 2021-07-21 01:14 | disposition home or self-care (01) ==
LOC: DL.ED 23:56
DX: E86.0 Dehydration (principal); J10.1 Influenza due to other identified influenza virus with other respiratory manifestations; Z20.822 Contact with and (suspected) exposure to COVID-19; Z72.0 Tobacco use
CPT/HCPCS: 0240U; 36415; 80048; 80307; 84703; 85025; 96374; 96375; 99284; A9270; J1885; J2405; J7030

== ENCOUNTER 2022-08-04 01:44 | Inpatient (IN) | payer MEDICAID ==
[~2022-08-04 01:44] MED LIST changes: +Lactated Ringers 1,000 ML IV ONE; -Sodium Chloride 0.9% 1,000 ML IV ONE
[2022-08-04] MEDS ORDERED: Oxytocin/Normal Saline 30 UNIT/500 ML BAG IV SCH ×2 (12:00)
[2022-08-04] MEDS ORDERED: Lidocaine 1% 10 ML MDV INJECT PRN ×2 (12:00)
[2022-08-04] MEDS ORDERED: Lactated Ringers 1,000 ML IV SCH (12:00)
[2022-08-04] MEDS ORDERED: Lactated Ringers 500 ML IV SCH (12:00)
[2022-08-04] MEDS ORDERED: Naloxone 2 MG/2 ML Syringe IVPUSH PRN (12:00)
[2022-08-04] MEDS ORDERED: Carboprost Tromethamine 250 MCG/1 ML Amp IM PRN ×2 (12:00)
[2022-08-04] MEDS ORDERED: Methylergonovine 0.2 MG/1 ML Amp IM PRN ×2 (12:00)
[2022-08-04] MEDS ORDERED: Sodium Chloride 0.9% 10 ML Syringe FLUSH PRN ×2 (12:00)
[2022-08-04] MEDS ORDERED: Ondansetron 4 MG/2 ML SDV IVPUSH PRN ×2 (12:00)
[2022-08-04] MEDS ORDERED: ePHEDrine 50 MG/ML SDV IVPUSH PRN (12:00)
[2022-08-04] MEDS ORDERED: Acetaminophen 325 MG Tab PO PRN ×2 (12:00)
[2022-08-04] MEDS ORDERED: Misoprostol 400 MCG (4 X 100 MCG TAB) RECTAL PRN ×2 (12:00)
[2022-08-04] MEDS ORDERED: Promethazine 25 MG/ML SDV IM PRN (12:00)
[2022-08-04] MEDS ORDERED: fentaNYL 100 MCG/2 ML SDV IVPUSH PRN ×2 (12:00)
[2022-08-04] MEDS ORDERED: Misoprostol 25 MCG (1/4 of 100 MCG) Tab VAG PRN (15:12)
[2022-08-04] MEDS: Misoprostol 25 MCG (1/4 of 100 MCG) Tab PO ONE ×2 (15:28→15:40)
[2022-08-04] MEDS: Lactated Ringers 1,000 ML IV SCH (21:08)
[2022-08-04] MEDS ORDERED: Tranexamic Acid 1,000 MG in Sodium Chloride 0.9% 100 ML IV PRN (22:10)
[2022-08-05] MEDS ORDERED: Morphine PF 10 MG/10 ML SDV IT ONE (00:01)
[2022-08-05] MEDS ORDERED: Dexmedetomidine 200 MCG/2 ML SDV IT ONE (00:01)
[2022-08-05] MEDS: Lactated Ringers 1,000 ML IV SCH ×2 (00:43→00:56)
[2022-08-05] MEDS ORDERED: Morphine PF 10 MG/10 ML SDV ONE (00:58)
[2022-08-05] MEDS ORDERED: Carboprost Tromethamine 250 MCG/1 ML Amp IM PRN (02:13)
[2022-08-05] MEDS ORDERED: Simethicone 80 MG Tab.Chew PO PRN (02:13)
[2022-08-05] MEDS ORDERED: Benzocaine/Menthol 20%-0.5% Spray 78 GM Cannister TOP PRN (02:13)
[2022-08-05] MEDS ORDERED: Docusate Sodium 100 MG Cap PO PRN (02:13)
[2022-08-05] MEDS ORDERED: Acetaminophen 325 MG Tab PO PRN (02:13)
[2022-08-05] MEDS ORDERED: Sodium Chloride 0.9% 10 ML Syringe FLUSH PRN (02:13)
[2022-08-05] MEDS ORDERED: Measles, Mumps & Rubella Vaccine 0.5 ML SDV SUBCUT ONE (02:13)
[2022-08-05] MEDS ORDERED: Oxytocin 10 Units/1 ML SDV IM PRN (02:13)
[2022-08-05] MEDS ORDERED: Misoprostol 400 MCG (4 X 100 MCG TAB) RECTAL PRN (02:13)
[2022-08-05] MEDS: Ibuprofen 800 MG Tab PO PRN ×2 (06:22→17:25)
[2022-08-05] MEDS: Ferrous Sulfate 325 MG Tab PO SCH (08:41)
[2022-08-05] MEDS: Prenatal Multivitamin with Calcium/Folic Acid/Iron Tab PO SCH (08:41)
[2022-08-06] MEDS: Ibuprofen 800 MG Tab PO PRN (04:04)
[2022-08-06 08:53] VITALS: BP 115/68; PULSE 78
[2022-08-06] MEDS ORDERED: Measles, Mumps & Rubella Vaccine 0.5 ML SDV SUBCUT ONE (09:03)
[2022-08-06] MEDS: Prenatal Multivitamin with Calcium/Folic Acid/Iron Tab PO SCH (09:28)
[2022-08-06] MEDS: Ferrous Sulfate 325 MG Tab PO SCH (09:28)
== END 2022-08-06 11:10 | disposition home or self-care (01) | DRG 805 ==
LOC: DL.OB 01:44 → OBSVTOIN 08-05 01:44
PROVIDERS: ADMIT Family Medicine; ATTEND Family Medicine
PROC: 10E0XZZ Delivery of Products of Conception, External Approach (ICD-10-PCS; principal; 2022-08-05)
PROC: 10907ZC Drainage of Amniotic Fluid, Therapeutic from Products of Conception, Via Natural or Artificial Opening (ICD-10-PCS; 2022-08-05)
PROC: 00HU33Z Insertion of Infusion Device into Spinal Canal, Percutaneous Approach (ICD-10-PCS; 2022-08-05)
PROC: 3E0R3BZ Introduction of Anesthetic Agent into Spinal Canal, Percutaneous Approach (ICD-10-PCS; 2022-08-05)
PROC: 3E0P7VZ Introduction of Hormone into Female Reproductive, Via Natural or Artificial Opening (ICD-10-PCS; 2022-08-05)
DX: O48.0 Post-term pregnancy (principal); O45.93 Premature separation of placenta, unspecified, third trimester; Z37.0 Single live birth; O99.324 Drug use complicating childbirth; Z3A.40 40 weeks gestation of pregnancy; O99.02 Anemia complicating childbirth; D64.9 Anemia, unspecified; Z90.49 Acquired absence of other specified parts of digestive tract; F12.90 Cannabis use, unspecified, uncomplicated
CPT/HCPCS: 36415; 51701; 59409; 62320; 76815; 85027; 90471; 90707; A9270-GY; J2270; J2405; J2590; J7120; U0002

== ENCOUNTER 2023-04-07 17:18 | Emergency (ER) | payer MEDICAID ==
[2023-04-07 18:20] LABS: BASOPHILS PERCENT AUTO 0.1 % (0.0-1.0); HEMATOCRIT 38.1 % (37.0-47.0); LYMPHOCYTES PERCENT AUTO 31.8 % (20.5-50.1); MEAN CORPUSCULAR HEMOGLOBIN 28.3 pg (27.0-34.0); MEAN CORPUSCULAR HGB CONC 34.1 g/dL (33.0-35.0); MONOCYTES PERCENT AUTO 6.4 % (2-8); NEUTROPHILS PERCENT AUTO 58.7 % (42.2-75.2); PLATELET COUNT,PLT 279 10^3/uL (150-450); RED BLOOD CELL COUNT 4.59 10^6/uL (4.2-5.4); WHITE BLOOD CELL COUNT,WBC 11.4 10^3/uL (5.0-10.0)
[2023-04-07 18:21] LABS: APPEARANCE,URINE SLIGHTLY CLOUDY (CLEAR); BILIRUBIN,URINE NEGATIVE (NEGATIVE); COLOR,URINE DARK YELLOW (YELLOW); GLUCOSE,URINE NEGATIVE (NEGATIVE); KETONES,URINE NEGATIVE (NEGATIVE); LEUKOCYTE ESTERASE,URINE SMALL (NEGATIVE); NITRITE,URINE POSITIVE (NEGATIVE); OCCULT BLOOD,URINE MODERATE (NEGATIVE); PROTEIN,URINE 100 (NEGATIVE); UROBILINOGEN,URINE 0.2 mg/dL (0.2-1.0)
[2023-04-07 18:22] VITALS: BP 100/86; PULSE 79
[2023-04-07 18:34] LABS: BACTERIA,URINE MANY /HPF (0-FEW/HPF); EPITHELIAL CELLS,URINE MODERATE /HPF (NOT SEEN); MUCUS,URINE FEW /LPF (NOT SEEN); RBC,URINE >100 /HPF (0-5); WBC,URINE >100 /HPF (0-5/HPF)
[2023-04-07] MEDS ORDERED: Ciprofloxacin 500 MG Tab PO ONE (20:13)
== END 2023-04-07 20:32 | disposition home or self-care (01) ==
LOC: DL.ED 17:18
DX: O36.4XX0 Maternal care for intrauterine death, not applicable or unspecified (principal); N30.01 Acute cystitis with hematuria; Z3A.09 9 weeks gestation of pregnancy
CPT/HCPCS: 36415; 76817; 81001; 81025; 84702; 85025; 87086; 87088; 87186; 87491; 87563; 87591; 99284; A9270

== ENCOUNTER 2024-06-15 04:42 | Inpatient (IN) | payer MEDICAID ==
[2024-06-17] MEDS ORDERED: Carboprost Tromethamine 250 MCG/1 ML Amp IM PRN (10:28)
[2024-06-17] MEDS ORDERED: Ondansetron 4 MG/2 ML SDV IVPUSH PRN (10:28)
[2024-06-17] MEDS ORDERED: Tranexamic Acid 1,000 MG in Sodium Chloride 0.9% 100 ML IV PRN (10:28)
[2024-06-17] MEDS ORDERED: Methylergonovine 0.2 MG/1 ML Amp IM PRN (10:28)
[2024-06-17] MEDS ORDERED: Sodium Chloride 0.9% 10 ML Syringe FLUSH PRN (10:28)
[2024-06-17] MEDS ORDERED: Acetaminophen 325 MG Tab PO PRN (10:28)
[2024-06-17] MEDS: Lactated Ringers 1,000 ML IV SCH (14:20)
[2024-06-17] MEDS: Oxytocin/Normal Saline 30 UNIT/500 ML BAG IV SCH (14:20)
[2024-06-17 14:25] LABS: HEMATOCRIT 34.3 % (37.0-47.0); MEAN CORPUSCULAR HEMOGLOBIN 26.6 pg (27.0-34.0); MEAN CORPUSCULAR HGB CONC 32.1 g/dL (33.0-35.0); MEAN CORPUSCULAR VOLUME 83.1 fL (80-100); RED BLOOD CELL COUNT 4.13 10^6/uL (4.2-5.4); WHITE BLOOD CELL COUNT,WBC 7.1 10^3/uL (5.0-10.0)
[2024-06-17] MEDS ORDERED: Misoprostol 100 MCG Tab RECTAL PRN (17:01)
[2024-06-17] MEDS: Misoprostol 100 MCG Tab BUCCAL ONE (21:44)
[2024-06-17] MEDS: Lactated Ringers 1,000 ML IV ONE (23:38)
[2024-06-18] MEDS ORDERED: Misoprostol 100 MCG Tab RECTAL PRN (03:30)
[2024-06-18] MEDS ORDERED: Oxytocin 10 Units/1 ML SDV IM PRN (03:30)
[2024-06-18] MEDS ORDERED: Simethicone 80 MG Tab.Chew PO PRN (03:30)
[2024-06-18] MEDS ORDERED: Tranexamic Acid 1,000 MG in Sodium Chloride 0.9% 100 ML IV PRN (03:30)
[2024-06-18] MEDS ORDERED: Carboprost Tromethamine 250 MCG/1 ML Amp IM PRN (03:30)
[2024-06-18] MEDS ORDERED: Sodium Chloride 0.9% 10 ML Syringe FLUSH PRN (03:30)
[2024-06-18] MEDS ORDERED: Witch Hazel Medicated Pads 100/Jar TOP PRN (03:30)
[2024-06-18] MEDS: Lidocaine 1% 30 ML SDV INJECT ONE (06:12)
[2024-06-18] MEDS: Ibuprofen 800 MG Tab PO SCH ×2 (06:36→07:21)
[2024-06-18] MEDS: Acetaminophen 325 MG Tab PO PRN (07:38)
[2024-06-18] MEDS ORDERED: Phenylephrine HCl In 0.9% NaCl 1 MG/10 ML Syringe IVPUSH PRN (08:34)
[2024-06-18] MEDS ORDERED: ePHEDrine 50 MG/ML SDV IVPUSH PRN (08:34)
[2024-06-18] MEDS: Ferrous Sulfate 325 MG Tab PO SCH (08:40)
[2024-06-18] MEDS: Benzocaine/Menthol 20%-0.5% Spray 78 GM Cannister TOP PRN (08:40)
[2024-06-18] MEDS: Prenatal Multivitamin with Calcium/Folic Acid/Iron Tab PO SCH (08:40)
[2024-06-18] MEDS: Docusate Sodium 100 MG Cap PO PRN (08:40)
[2024-06-18] MEDS ORDERED: Ropivacaine 200 MG in Premix Bag 1 BAG EPIDUR SCH (08:45)
[2024-06-19 07:08] LABS: HEMATOCRIT 30.8 % (37.0-47.0); HEMOGLOBIN 9.9 g/dL (12.0-16.0); MEAN CORPUSCULAR HGB CONC 32.1 g/dL (33.0-35.0); MEAN CORPUSCULAR VOLUME 83.9 fL (80-100); RED BLOOD CELL COUNT 3.67 10^6/uL (4.2-5.4); WHITE BLOOD CELL COUNT,WBC 10.5 10^3/uL (5.0-10.0)
[2024-06-19] MEDS: Measles, Mumps & Rubella Vaccine 0.5 ML SDV SUBCUT ONE (08:38)
[2024-06-19] MEDS: Diphtheria,Pertussis(Acell),Tetanus Vaccine 0.5 ML Syringe IM ONE (09:31)
[2024-06-19 10:24] VITALS: BP 130/75; PULSE 79
== END 2024-06-19 10:59 | disposition home or self-care (01) | DRG 807 ==
LOC: DL.OB 06-17 03:17 → OBSVTOIN 06-18 03:17
PROVIDERS: ADMIT Family Medicine; ATTEND Family Medicine
PROC: 10E0XZZ Delivery of Products of Conception, External Approach (ICD-10-PCS; principal; 2024-06-18)
PROC: 10907ZC Drainage of Amniotic Fluid, Therapeutic from Products of Conception, Via Natural or Artificial Opening (ICD-10-PCS; 2024-06-18)
PROC: 3E033VJ Introduction of Other Hormone into Peripheral Vein, Percutaneous Approach (ICD-10-PCS; 2024-06-18)
PROC: 3E0R3BZ Introduction of Anesthetic Agent into Spinal Canal, Percutaneous Approach (ICD-10-PCS; 2024-06-18)
PROC: 00HU33Z Insertion of Infusion Device into Spinal Canal, Percutaneous Approach (ICD-10-PCS; 2024-06-18)
PROC: 10H07YZ Insertion of Other Device into Products of Conception, Via Natural or Artificial Opening (ICD-10-PCS; 2024-06-18)
DX: O48.0 Post-term pregnancy (principal); Z37.0 Single live birth; O99.334 Smoking (tobacco) complicating childbirth; F17.200 Nicotine dependence, unspecified, uncomplicated; O70.0 First degree perineal laceration during delivery; O99.02 Anemia complicating childbirth; Z3A.40 40 weeks gestation of pregnancy; Z28.39 Other underimmunization status
CPT/HCPCS: 36415; 51702; 59409; 85027; 90471; 90707; 90715; A9270-GY; J2590; J7120